=== PATIENT | male | born 1985 | race Caucasian/White ===

== ENCOUNTER 2017-07-05 20:13 | Emergency (ER) | payer OTHER ==
[~2017-07-05] VITALS: Ht 177.8 cm; Wt 82.7 kg
[2017-07-05] MEDS ORDERED: SODIUM CHLORIDE 0.9% 1000ML 1,000 ML IV STA (20:23)
[2017-07-05 20:24] VITALS: TEMP 36.8; Ht 177.8 cm; Wt 82.7 kg
[2017-07-05 20:29] VITALS: O2SAT 96
[2017-07-05] MEDS ORDERED: OPTIRAY 320 IV PRN (20:30)
[2017-07-05 20:57] LABS: BASO % 0.2 %; BASO ABS # 0.02 K/uL (0-0.2); EOS % 1.2 %; HEMATOCRIT 46.7 % (42-52); HEMOGLOBIN 16.1 g/dL (14.0-18.0); IG# 0.02 K/uL (0.00-0.02); LYMPH % 21.4 %; LYMPH ABS # 1.74 K/uL (1.2-3.4); MEAN CELL VOLUME 85.8 fL (80-100); MEAN CORPUSCULAR HEMOGLOBIN 29.6 pg (25-34); MEAN CORPUSCULAR HGB CONC 34.5 g/dl (32-36); MEAN PLATELET VOLUME 10.5 fL (7.4-10.4); MONO % 5.4 %; MONO ABS # 0.44 K/uL (0.11-0.59); NEUT % 71.6 %; NEUT ABS # 5.81 K/uL (1.4-6.5); PLATELET COUNT 237 K/uL (130-400); RED CELL DISTRIBUTION WIDTH SD 43.2 fL (36.4-46.3); WHITE BLOOD COUNT 8.13 K/uL (4.8-10.8)
[2017-07-05 21:04] LABS: ISTAT CREATININE 0.8 mg/dl (0.6-1.3); ISTAT IONIZED CALCIUM 1.22 mmol/l (1.12-1.32); ISTAT POTASSIUM 4.2 mEq/L (3.3-5.0)
[2017-07-05 21:15] LABS: ALBUMIN 4.2 gm/dl (3.4-5.0); CALCIUM 9.4 mg/dl (8.5-10.1); CREATININE 0.82 mg/dl (0.60-1.40); POTASSIUM 4.1 mmol/L (3.5-5.1)
[2017-07-05 21:17] LABS: TOTAL PROTEIN 8.4 gm/dl (6.4-8.2)
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
[2017-07-06 08:05] VITALS: BP 129/78; PULSE 90; O2SAT 96
== END 2017-07-06 08:06 | disposition home or self-care (01) ==
LOC: EDBD 20:13 → C.EDA 20:14
DX: T43.621A Poisoning by amphetamines, accidental (unintentional), initial encounter (principal); T40.7X1A Poisoning by cannabis (derivatives), accidental (unintentional), initial encounter; T42.4X1A Poisoning by benzodiazepines, accidental (unintentional), initial encounter; X58.XXXA Exposure to other specified factors, initial encounter; S00.81XA Abrasion of other part of head, initial encounter; V47.6XXA Car passenger injured in collision with fixed or stationary object in traffic accident, initial encounter; Y92.488 Other paved roadways as the place of occurrence of the external cause; S01.111A Laceration without foreign body of right eyelid and periocular area, initial encounter; M79.7 Fibromyalgia; G62.9 Polyneuropathy, unspecified; F17.200 Nicotine dependence, unspecified, uncomplicated; R00.0 Tachycardia, unspecified